=== PATIENT | female | born 1975 | race Caucasian/White ===

== ENCOUNTER 2024-04-23 14:20 | Outpatient (AMB) | payer BC, SELFPAY ==
--- NOTE | 2024-04-23 14:23 | MHC.OFFVIS ---
Vital Signs 04/23/24 14:24 Height 5 ft 5 in Weight 170 lb BMI 28.3 BP 126/70 Intake Visit Reasons: New patient Annual [employer] Rolls Required: No Information Interpreted: clinical only Maintenance Equipment Operator: Maintenance Equipment Operator Present Allergies codeine Allergy (Severe, Verified 04/23/24 14:27) Fatigued Sulfa (Sulfonamide Antibiotics) Allergy (Severe, Verified 04/23/24 14:27) Hives Medication List - Last Reconciled 04/23/24 by Coco Lepe CNM fexofenadine (Coreen Allergy) 120 mg PO DAILY norethindrone (contraceptive) 0.35 mg PO DAILY olmesartan (Benicar) 20 mg PO DAILY ziprasidone HCl (Geodon) 60 mg PO BID Post menopausal: Yes (2009) Do you need a note to return to daycare/school/sports/work: No HPI HPI New patient Annual: Details: Patient is here for new 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 She is on control pills and has been for years in the only time she went off them somebody remove the condom and she got and had to have an so she has not going off control until she is very clear that she does not need it she has not interested in going off of it and getting checked to see if she is menopausal yet. She has not having any symptoms other than some night sweats which she manages. She is gradually getting seen by primary care and has had all her fasting blood work and was told everything was good she is working on weight loss and walking a lot. She has waiting on a dermatology referral she has set up appointments with therapist and psychiatrist and is getting that seem to. She was told she had a fibroid in the past she has been on the norethindrone control pills for years and they have worked well for her and gradually her periods tapered off and got mortgage clerk and mortgage clerk and finally disappeared and she has not on happy with this. She has never had an abnormal Pap smear she said she had 2 signed have her records sent here but search of the records does not reveal Pap smear anywhere it is supposed to be filed in the system we will do the Pap smear today she declines testing for STIs as she has no concerns about that. She does want her mammogram and she says she is overdue. She was told she had a fibroid in the past and is open to getting an ultrasound to check on that and also to check on the lining of the uterus. She was told that getting checked to see if she was menopausal was not reliable while she is on control and she has 0/No interest in going off of it to find out [facility] Medical History (Updated 04/23/24 @ 15:37 by Coco Lepe CNM) HTN (hypertension) Skin cancer Bipolar 1 disorder, depressed Family History (Updated 04/23/24 @ 14:33 by Josh Vazquez [facility]) Paternal Aunt Ovarian cancer Social History (Updated 04/23/24 @ 14:33 by Josh Vazquez [facility]) Alcohol intake: current Alcohol intake frequency: 0-2 drinks per day Patient Tobacco Use Status: Former Tobacco user Substance Use Type: Marijuana Female Reproductive History Menstrual Age of Menarche: 11 Duration of menses: 3-5 days control method: pills Total pregnancies: 0 Date of last pap smear: 12/05/22 (negative) History of abnormal pap smear: No Date of Mammogram: 12/05/22 (negative) Physical Exam Vital Signs: Last Vital Signs BP 126/70 04/23/24 14:24 BMI result Body Mass Index 28.3 Assessment & Plan Assessment & Plan (1) Well woman exam with routine gynecological exam: Code(s): Z01.419 - Encounter for gynecological examination (general) (routine) without abnormal findings Category: Medical (2) Surveillance for control, oral contraceptives: Code(s): Z30.41 - Encounter for surveillance of contraceptive pills Category: Medical (3) Fibroid uterus: Code(s): D25.9 - Leiomyoma of uterus, unspecified Category: Medical (4) Amenorrhea, secondary: Comment: Has been on norethindrone control pills for years periods gradually tapered off and gradually disappeared, gets some cramping monthly. Code(s): N91.1 - Secondary amenorrhea Category: Medical Plan -----Discussed in this visit the following: healthy balanced diet, regular and consistent exercise, getting recommended health screens, doing the best she can for her particular health concerns, kegel exercises, pap smear screening and followup recommendations, mammography screening and SBE, normal changes in cycles in her life stage--- . Discussed her past history use of the norethindrone control pills to manage her periods but eventually made her periods disappear she has been happy on these and does not want to go off them and chance end of life she has in a stable relationship currently. She declines testing for STIs she wants to stay on the control pills she has not interested in going off of them and checking FSH level at this time. She is looking to get a mammogram and is open to having a pelvic ultrasound just to check the endometrial lining and she did have a history of a fibroid in the past. She is working on losing another 20 or 25 lb. She walks many miles a day. She is still trying to set up all of her medical appointments and is waiting for skin appointment she does have a history of skin cancer but the waiting time for an appointment is very long. I will refill her control pills as soon as her mail order prescription is entered into her system. Pap smear was done today as review of our records did not indicate receipt of any records from her [facility] provider she denies any history of abnormal Paps she declined any testing for STIs and has no problems with abnormal discharge. RTC after the ultrasound to review new ultrasound discussed that often times on control pills a various types oligomenorrhea can occur and eventually amenorrhea. Discussed that this affect is some early seen the Mirena but less often with progestin only control pills. NOTE I ATTEMPTED TO SEND HER NORETHINDRONE PRESCRIPTION FOR 1 YEAR TO [facility] HOWEVER HER SPECIFIC [facility] DISPENSER INFORMATION NEEDED TO BE INPUT INTO THE SYSTEM AND IT WAS NOT ABLE TO BE ENTERED BY OFFICE STAFF UNTIL MORE INFORMATION IS OBTAINED PATIENT STATES SHE WILL CONTACT INTERNATIONAL MARKETING MANAGER AND WHEN PRESCRIPTION REQUEST SENT TO ME, I WILL SEND IT. Orders: Orders MM tomosynthesis screening BI Today D25.9 - Leiomyoma of uterus, unspecified, N91.1 - Secondary amenorrhea, Z01.419 - Encounter for gynecological examination (general) (routine) without abnormal findings, Z12.31 - Encounter for screening mammogram for malignant neoplasm of breast, Z30.41 - Encounter for surveillance of contraceptive pills US pelvic and transvaginal Today D25.9 - Leiomyoma of uterus, unspecified, N91.1 - Secondary amenorrhea, Z01.419 - Encounter for gynecological examination (general) (routine) without abnormal findings, Z30.41 - Encounter for surveillance of contraceptive pills Pap Smear Today Z01.419 - Encounter for gynecological examination (general) (routine) without abnormal findings Coding Level of Care Code New Pt Prev Care 40-64y(80658) Diagnoses Well woman exam with routine gynecological exam Z01.419 Surveillance for control, oral contraceptives Z30.41 Fibroid uterus D25.9 Amenorrhea, secondary N91.1
[2024-04-23 14:24] VITALS: BP 126/70; BMI 28.3
== END 2024-04-23 15:53 | disposition home or self-care (01) ==
LOC: HO.HWSM 14:20
PROVIDERS: PCP Family Medicine; Visit Provider Advanced Practice Midwife
DX: Z01.419 Encounter for gynecological examination (general) (routine) without abnormal findings (principal); Z30.41 Encounter for surveillance of contraceptive pills; D25.9 Leiomyoma of uterus, unspecified; N91.1 Secondary amenorrhea
CPT/HCPCS: 99386

== ENCOUNTER 2024-04-23 14:20 | Outpatient (REF) | payer BC, SELFPAY ==
[2024-04-29 20:23] LABS: HPV mRNA E6/E7 rflx Not Detected (Not Detected)
== END 2024-04-23 14:21 | disposition home or self-care (01) ==
LOC: HO.LAB 14:20
PROVIDERS: PCP Family Medicine; Visit Provider Advanced Practice Midwife
DX: Z01.419 Encounter for gynecological examination (general) (routine) without abnormal findings (principal); Z11.51 Encounter for screening for human papillomavirus (HPV)
CPT/HCPCS: 87624; 88142

== ENCOUNTER 2024-05-15 14:25 | Outpatient (REF) | payer BC, SELFPAY ==
--- NOTE | ~2024-05-15 | US_ITS ---
EXAMINATION: US PELVIS CLINICAL INFORMATION: History of fibroids. COMPARISON: None available. TECHNIQUE: Ultrasound of the pelvis is performed using both transabdominal and transvaginal transducers along with Doppler. Transvaginal imaging is performed due to inadequate visualization transabdominally. FINDINGS: Uterus: The uterus is anteverted and retroflexed measuring 10.2 x 7.6 x 5.8 cm for a volume of 235 mL. The double wall endometrial thickness is 4 mm. There is a large 5.5 x 4.2 x 5.0 cm fibroid at the fundus on the right with a smaller right-sided mid body submucosal 1.3 x 1.1 x 1.2 cm fibroid. Adnexa: The right ovary was not seen. The left ovary appeared normal measuring 2.0 x 1.5 x 1.4 cm for a volume of 2.2 mL. No free fluid present in the cul-de-sac. US/US pelvic and transvaginal IMPRESSION: Uterine fibroids as described above.
== END 2024-05-15 14:26 | disposition home or self-care (01) ==
LOC: HO.US 14:25
PROVIDERS: PCP Family Medicine; Visit Provider Advanced Practice Midwife
DX: D25.9 Leiomyoma of uterus, unspecified (principal); N91.1 Secondary amenorrhea
CPT/HCPCS: 76830; 76856

== ENCOUNTER → 2024-05-22 09:15 | Outpatient (BNV) | payer BC, SELFPAY | PROVIDERS: PCP Family Medicine; Visit Provider Radiology Diagnostic Radiology | DX: Z12.31 Encounter for screening mammogram for malignant neoplasm of breast (principal) | CPT/HCPCS: 77063; 77067 ==

== ENCOUNTER 2024-05-22 09:21 | Outpatient (REF) | payer BC, SELFPAY ==
--- NOTE | ~2024-05-22 | MM_ITS ---
EXAMINATION: MM SCREENING DIGITAL BREAST TOMOSYNTHESIS, BILATERAL CLINICAL INFORMATION: Screening. Asymptomatic. COMPARISON: Mammography: There are no prior mammograms for comparison. TECHNIQUE: Digital breast tomosynthesis is performed in both the craniocaudal and mediolateral oblique views along with computer-aided detection (CAD). Synthesized 2D images are generated from the tomosynthesis. FINDINGS: The breasts are heterogeneously dense, which may obscure small masses (ACR BI-RADS breast composition Category c). There are no significant masses, abnormal calcifications, or other abnormalities. MM/MM tomosynthesis screening BI IMPRESSION: No mammographic evidence of malignancy. ASSESSMENT: BI-RADS BI-RADS 1 - Negative RECOMMENDATION: Routine annual mammography screening. 1 year F/U This examination should not preclude the clinical evaluation of a suspicious palpable abnormality. This patient's information was entered into a reminder system with a target due date for their next mammogram.
== END 2024-05-22 09:22 | disposition home or self-care (01) ==
LOC: HO.MAMMO 09:21
PROVIDERS: PCP Family Medicine; Visit Provider Advanced Practice Midwife
DX: Z12.31 Encounter for screening mammogram for malignant neoplasm of breast (principal)
CPT/HCPCS: 77063; 77067

== ENCOUNTER 2024-06-14 13:35 | Outpatient (AMB) | payer BC, SELFPAY ==
[2024-06-14 13:45] VITALS: BP 116/70; BMI 28.3
--- NOTE | 2024-06-14 13:45 | A.OFFVIS_ITS ---
Vital Signs 06/14/24 13:45 Height 5 ft 5 in Weight 170 lb BMI 28.3 BP 116/70 Intake Visit Reasons: ultra sound follow up Medical Records Assistant Services: Medical Records Assistant Present Information Interpreted: clinical only Data Storage Specialist: Data Storage Specialist Present Allergies codeine Allergy (Severe, Verified 06/14/24 13:46) Fatigued Sulfa (Sulfonamide Antibiotics) Allergy (Severe, Verified 06/14/24 13:46) Hives Post menopausal: Yes (2009) Do you need a note to return to daycare/school/sports/work: No HPI HPI ultra sound follow up: Details: Patient is here for an ultrasound follow-up visit. She knew she had fibroids and per my note this was to check whether not they had grown additionally it was to assess whether there was anything problematic going on with her uterine lining as she has not really had a period in many years as they have dwindled over time discussion had also taken place as to whether not to check for menopause but she would perhaps me just a for checking the FSH level and she has no role at the as she is very sexually active and has no injury no problems ever also has no issues many years. In this visit we reviewed the history and her ultrasound in detail. She is on meds for her bipolar and is feeling that they are very stable at this time and she is doing well and she is also on medication for her blood pressure and that is good as well she has her primary care provider and her psychiatrist and she checks in with them and she is very proactive and does her own research and is her best advocate. She was able to get her refill through [facility] and it is easy to pharmacy picking technician pills every 3 months so she is sticking with that for now. She is not having any debilitating symptoms and discussion took place about being very physically sexually active and how this helps keep going. We will see her in 1 year. She had her Pap smear and she had her mammogram as she was told she had dense breasts. [facility] Medical History HTN (hypertension) Skin cancer Bipolar 1 disorder, depressed Family History Paternal Aunt Ovarian cancer Social History Alcohol intake: current Alcohol intake frequency: 0-2 drinks per day Patient Tobacco Use Status: Former Tobacco user Substance Use Type: Marijuana Female Reproductive History Menstrual Age of Menarche: 11 Duration of menses: 3-5 days control method: pills Total pregnancies: 0 Date of last pap smear: 04/24/24 (neg.) History of abnormal pap smear: No Date of Mammogram: 11/22/23 (neg.) Physical Exam Vital Signs: Last Vital Signs BP 116/70 06/14/24 13:45 BMI result Body Mass Index 28.3 Results Reviewed Results Reviewed: Patient: Lynne Amador MR#: [id number] : 1975 Acct:[id number] Age/Sex: 48 / F ADM Date: 05/15/24 Loc: HO.US Attending Dr: Coco Lepe CNM Ordering Physician: Coco Lepe CNM Date of Service: 05/15/24 Procedure(s): US pelvic and transvaginal Accession Number(s): [id number] cc: Dari Carmen MD; Coco Lepe CNM~ EXAMINATION: US PELVIS CLINICAL INFORMATION: History of fibroids. COMPARISON: None available. TECHNIQUE: Ultrasound of the pelvis is performed using both transabdominal and transvaginal transducers along with Doppler. Transvaginal imaging is performed due to inadequate visualization transabdominally. FINDINGS: Uterus: The uterus is anteverted and retroflexed measuring 10.2 x 7.6 x 5.8 cm for a volume of 235 mL. The double wall endometrial thickness is 4 mm. There is a large 5.5 x 4.2 x 5.0 cm fibroid at the fundus on the right with a smaller right-sided mid body submucosal 1.3 x 1.1 x 1.2 cm fibroid. Adnexa: The right ovary was not seen. The left ovary appeared normal measuring 2.0 x 1.5 x 1.4 cm for a volume of 2.2 mL. No free fluid present in the cul-de-sac. US/US pelvic and transvaginal IMPRESSION: Uterine fibroids as described above. Dictated By: Umair Sepulveda MD Signed By: <Electronically signed by Umair Sepulveda MD in OV> 06/03/24 2240 DD/ 1454 TD/TT: Electrolog Operator: KEKE Assessment & Plan Assessment & Plan (1) Cervical cancer screening: Comment: HPV is negative that the Pap is still pending... Pap is neg. Code(s): Z12.4 - Encounter for screening for malignant neoplasm of cervix Category: Medical (2) Amenorrhea, secondary: Comment: Has been on norethindrone control pills for years periods gradually tapered off and gradually disappeared, gets some cramping monthly. Code(s): N91.1 - Secondary amenorrhea Category: Medical (3) Fibroid uterus: Code(s): D25.9 - Leiomyoma of uterus, unspecified Category: Medical (4) Surveillance for control, oral contraceptives: Code(s): Z30.41 - Encounter for surveillance of contraceptive pills Category: Medical Plan Patient is here for an ultrasound follow-up visit. She knew she had fibroids and per my note this was to check whether not they had grown additionally it was to assess whether there was anything problematic going on with her uterine lining as she has not really had a period in many years as they have dwindled over time discussion had also taken place as to whether not to check for menopause but she would perhaps me just a for checking the FSH level and she has no role at the as she is very sexually active and has no injury no problems ever also has no issues many years. In this visit we reviewed the history and her ultrasound in detail. She is on meds for her bipolar and is feeling that they are very stable at this time and she is doing well and she is also on medication for her blood pressure and that is good as well she has her primary care provider and her psychiatrist and she checks in with them and she is very proactive and does her own research and is her best advocate. She was able [facility] and it is easy to pharmacy picking technician pills every 3 months so she is sticking with that for now. She is not having any debilitating symptoms and discussion took place about being very physically sexually active and how this helps keep going. We will see her in 1 year. She had her Pap smear and she had her mammogram as she was told she had dense breasts. Coding Level of Care Code Est Pt Level 3 (80318) Diagnoses Cervical cancer screening Z12.4 Amenorrhea, secondary N91.1 Fibroid uterus D25.9 Surveillance for control, oral contraceptives Z30.41
== END 2024-06-14 14:34 | disposition home or self-care (01) ==
LOC: HO.HWSM 13:35
PROVIDERS: PCP Family Medicine; Visit Provider Advanced Practice Midwife
DX: N91.1 Secondary amenorrhea (principal); D25.9 Leiomyoma of uterus, unspecified; Z30.41 Encounter for surveillance of contraceptive pills
CPT/HCPCS: 99213

== ENCOUNTER → 2024-06-14 13:35 | Outpatient (BNVA) | payer BC, SELFPAY | PROVIDERS: PCP Family Medicine; Visit Provider Advanced Practice Midwife ==

== ENCOUNTER 2025-06-16 12:58 | Outpatient (REF) | payer BC, SELFPAY ==
--- OUTSIDE RECORDS SUMMARY | 2025-06-16 13:04 | XMS_ITS | Clinical Summary ---
Author Organization [facility] [address] [facility] Address [address] [place] [address] Phone Care Team Providers Care Talent Rep Name Role Phone Dari Carmen MD Primary Care Provider Allergies Active Allergy Reactions Criticality Noted Date Comments Cat Dander 03/11/2025 Codeine 03/11/2025 Econazole Rash 03/11/2025 Grass Pollen 03/11/2025 Oxycodone 03/11/2025 Oxycodone-Acetaminophen 03/11/2025 Sulfa (Sulfonamide Antibiotics) Hives 04/2025 Medications albuterol HFA (PROAIR HFA ; PROVENTIL HFA ; VENTOLIN HFA) 90 mcg/actuation inhaler Inhale 2 puffs by mouth every 6 (six) hours if needed for wheezing. Active fexofenadine (RAMAN) 180 mg tablet Take 1 tablet (180 mg total) by mouth 1 (one) time each day. Active clonazePAM (KlonoPIN) 0.5 mg tablet Take 1 tablet (0.5 mg total) by mouth 1 (one) time each day if needed for anxiety. Max Daily Amount: 0.5 mg Active prasterone, dhea, (DHEA) 25 mg capsule Take 25 mg by mouth 1 (one) time each day. Active B complex-vitamin C-folic acid (DRAKE-SHAR) 1-60-300 mg-mg-mcg tablet Take 1 tablet by mouth 1 (one) time each day with breakfast. Active metoprolol succinate 25 mg capsule,sprinkl e,ER 24hr Take 25 mg by mouth 1 (one) time each day. Active multivitamin tablet Take 1 tablet by mouth 1 (one) time each day. Active norethindrone (HOLLIE,ATUL,H EATHER,MICRONOR ) 0.35 mg tablet Take 1 tablet (0.35 mg total) by mouth 1 (one) time each day. Active olmesartan (BENICAR) 20 mg tablet Take 1 tablet (20 mg total) by mouth 1 (one) time each day. Active sodium chloride (OCEAN) 0.65 % nasal spray Administer 1 spray into each nostril if needed for congestion. Active ziprasidone (GEODON) 60 mg capsule Take 1 capsule (60 mg total) by mouth 2 (two) times a day with meals. Active polyethylene glycol (Golytely) 236-22.74-6.74 -5.86 gram solution Take 4L by mouth once for one dose. May substitue any PEG. Starting at 6PM the night before your procedure drink 1 8oz glasses at your own pace until you complete half of the gallon. Finish 2nd half of the gallon 5 hours before your procedure. 4000 mL 5 Active bisacodyL (DULCOLAX) 5 mg EC tablet Take 2 tablets by mouth right before beginning bowel prep. See instructions provided by the office 2 tablet 5 Active Encounters Date Type Department Care Team Description 05/21/2025 Telephone Gastroenterology - [address] [id number] Robles Puckett MD special procedure r/s from Last 3 Months Social History Tobacco Use Types Packs/Day Years Used Date Smoking Tobacco: Never Assessed Comments Unknown Sex and Gender Information Value Date Recorded Sex Assigned at Not on file Legal Sex Female 12:30 PM EDT Gender Identity Female 05/15/2025 8:52 AM EDT Sexual Orientation Not on file Plan of Treatment Upcoming Encounters Date Type Department Care Team (Late st Contact Info) Description 08/08/2025 8:30 AM EDT Appointment [facility]oscopy [address] [place] [id number] Robles Puckett MD [address] [address] Health Maintenance Due Date Last Done Comments Breast Cancer Screening 1975 DTaP,Tdap,and Td Vaccines (1 - Tdap) 1993 Hepatitis B Vaccines (1 of 3 - 19+ 3-dose series) 1993 Cervical Cancer Screening: P ap Smear 1995 Pneumococcal Vaccine: 50+ Ye ars (1 of 1 - PCV) 2024 Zoster Vaccines (1 of 2) 2024 COVID-19 Vaccine (1 - 2023-2 5 season) 2024 Depression Screening 11/06/2024 Colorectal Cancer Screening: Colonoscopy 03/12/2025 HIV Screening 03/12/2025 Hepatitis C Screening 03/12/2025 Social Influencers of Health Screening 03/12/2025 Influenza Vaccine (#1) 2025 HIB Vaccines Aged Out No longer eligi ble based on patient's age to complete this topic HPV Vaccines Aged Out No longer eligi ble based on patient's age to complete this topic Hepatitis A Vaccines Aged Out No long er eligible based on patient's age to complete this topic IPV Vaccines Aged Out No longer eligi ble based on patient's age to complete this topic MMR Vaccines Aged Out No longer eligi ble based on patient's age to complete this topic Meningococcal ACWY Vaccine Aged Out N o longer eligible based on patient's age to complete this topic Meningococcal B Vaccine Aged Out No l onger eligible based on patient's age to complete this topic RSV Immunization Patients Un fabiola 20 months Aged Out No longer eligible b ased on patient's age to complete this topic Varicella Vaccines Aged Out No longer eligible based on patient's age to complete this topic Insurance [facility]ASHI Helton [facility] ([facility] Care Teams Talent Rep Relationship Specialty Start Date End Date Dari Carmen MD [address] [id number] PCP - General Family Medicine 03/11/25
== END 2025-06-16 12:59 | disposition home or self-care (01) ==
LOC: HO.MAMMO 12:58
PROVIDERS: PCP Family Medicine; Visit Provider Family Medicine
DX: Z12.31 Encounter for screening mammogram for malignant neoplasm of breast (principal)
CPT/HCPCS: 77063; 77067

== ENCOUNTER → 2025-06-16 13:00 | Outpatient (BNV) | payer BC, SELFPAY | PROVIDERS: PCP Family Medicine; Visit Provider Internal Medicine | DX: Z12.31 Encounter for screening mammogram for malignant neoplasm of breast (principal) | CPT/HCPCS: 77063; 77067 ==

== ENCOUNTER 2025-08-12 08:58 | Outpatient (AMB) | payer BC, SELFPAY ==
--- OUTSIDE RECORDS SUMMARY | 2025-08-08 07:42 | XMS_ITS | Encounter Summary ---
Author Organization [facility] Address [address] [place] [address] Care Team Providers Care Tank Builder And Erector Name Role Phone Dari Carmen MD Primary Care Provider [phone] Reason for Referral * Hospital - Outpatient (Routine) - Authorized Specialty Diagnoses / Procedures Referred By Samantha tilley Referred To Contact Gastroenterology Diagnoses Colon cancer screening Procedures COLONOSCOPY Anesthesia - MAC; [facility] ENDOSCOPY Robles Puckett MD [address] [address] Phone: tel: fax: [facility] Endoscopy [address] [place] [address] Phone: tel: Referral ID Status Reason Start Date Expiration Date V isits Requested Visits Authorized [id number] Authorized 03/14/2025 03/14/2026 1 1 Reason for Visit * Hospital - Outpatient (Routine) - Authorized Specialty Diagnoses / Procedures Referred By Samantha tilley Referred To Contact Gastroenterology Diagnoses Colon cancer screening Procedures COLONOSCOPY Anesthesia - MAC; [facility] ENDOSCOPY Robles Puckett MD [address] [address] Phone: tel: fax: [facility] Endoscopy [address] [place] [address] Phone: tel: Referral ID Status Reason Start Date Expiration Date V isits Requested Visits Authorized [id number] Authorized 03/14/2025 03/14/2026 1 1 Encounter Details Date Type Department Care Team (Latest Contact Info) Description 08/08/2025 7:42 AM EDT - 08/08/2025 11:59 PM EDT Hospital Encounter [facility] Endoscopy [address] [place] [address] Robles Puckett MD [address] [address] Tiarra Rios CRNA [address] [place] [address] Steve Prakash DO [address] [place] [address] Colon cancer screening Discharge Disposition: Home or Self Care Social History Tobacco Use Types Packs/Day Years Used Date Smoking Tobacco: Never Smokeless Tobacco: Current Tobacco Cessation:Ready to Q uit: Not Asked; Counseling Given: Not Answered Interpersonal Safety Answer Date Record ed Physical Abuse Unrecognized value 08/08/2025 Verbal Abuse Unrecognized value 08/08/2025 Comments No Sex and Gender Information Value Date Recorded Sex Assigned at Not on file Legal Sex Female 12:30 PM EDT Gender Identity Female 05/15/2025 8:52 AM EDT Sexual Orientation Not on file documented as of this encounter Last Filed Vital Signs Vital Sign Reading Time Taken Comments Blood Pressure 145/76 08/08/2025 9:13 AM EDT Pulse 57 08/08/2025 9:13 AM EDT Temperature 36.7 C (98.1 F) 08/08/2025 8:53 AM EDT Respiratory Rate 17 08/08/2025 9:13 AM EDT Oxygen Saturation 98% 08/08/2025 9:13 AM EDT Inhaled Oxygen Concentration - - Weight 76.2 kg (168 lb) 08/08/2025 8:31 AM EDT Height 165.1 cm (5' 5 ) 08/08/2025 8:31 AM EDT Body Mass Index 27.96 08/08/2025 8:31 AM EDT documented in this encounter Discharge Instructions * Attachments The following attachments cannot be sent through Care Everywhere. * Colonoscopy: Post op (Citizen Of [place]) documented in this encounter Medications at Time of Discharge albuterol HFA (PROAIR HFA ; PROVENTIL HFA ; VENTOLIN HFA) 90 mcg/actuation inhaler Inhale 2 puffs by mouth every 6 (six) hours if needed for wheezing. B complex-vitamin C-folic acid (DRAKE-SHAR) 1-60-300 mg-mg-mcg tablet Take 1 tablet by mouth 1 (one) time each day with breakfast. bisacodyL (DULCOLAX) 5 mg EC tablet Take 2 tablets by mouth right before beginning bowel prep. See instructions provided by the office 2 tablet 05/06/2025 clonazePAM (KlonoPIN) 0.5 mg tablet Take 1 tablet (0.5 mg total) by mouth 1 (one) time each day if needed for anxiety. fexofenadine (RAMAN) 180 mg tablet Take 1 tablet (180 mg total) by mouth 1 (one) time each day. metoprolol succinate 25 mg capsule,sprinkle ,ER 24hr Take 25 mg by mouth 1 (one) time each day. multivitamin tablet Take 1 tablet by mouth 1 (one) time each day. norethindrone (HOLLIE,ATUL,HE ATHER,MICRONOR) 0.35 mg tablet Take 1 tablet (0.35 mg total) by mouth 1 (one) time each day. olmesartan (BENICAR) 20 mg tablet Take 1 tablet (20 mg total) by mouth 1 (one) time each day. polyethylene glycol (Golytely) 236-22.74-6.74 -5.86 gram solution Take 4L by mouth once for one dose. May substitue any PEG. Starting at 6PM the night before your procedure drink 1 8oz glasses at your own pace until you complete half of the gallon. Finish 2nd half of the gallon 5 hours before your procedure. 4000 mL 05/06/2025 prasterone, dhea, (DHEA) 25 mg capsule Take 25 mg by mouth 1 (one) time each day. sodium chloride (OCEAN) 0.65 % nasal spray Administer 1 spray into each nostril if needed for congestion. ziprasidone (GEODON) 60 mg capsule Take 1 capsule (60 mg total) by mouth 2 (two) times a day with meals. documented as of this encounter Discharge Disposition Disposition Code Departure Means Destination Home or Self Care documented in this encounter H&P Notes * Robles Puckett MD - 08/08/2025 8:30 AM EDT Pre-Op Diagnosis: Screening for colon cancer Proposed Procedure: Colonoscopy Performing Surgeon/MD/Endoscopist: Robles Puckett MD Medical/History: Medical History[1]Surgical History[2] Medications/Allergies: Prior to Admission medications Medication Sig Start Date End Date Taking? Authorizing Provider fexofenadine (RAMAN) 180 mg tablet Take 1 tablet (180 mg total) by mouth 1 (one) time each day. Yes Historical Provider, metoprolol succinate 25 mg capsule,sprinkle,ER 24hr Take 25 mg by mouth 1 (one) time each day. Yes Historical Provider, multivitamin tablet Take 1 tablet by mouth 1 (one) time each day. Yes Historical Provider, norethindrone (HOLLIE,ATUL,JED,MICRONOR) 0.35 mg tablet Take 1 tablet (0.35 mg total) by mouth1 (one) time each day. Yes Historical Provider, olmesartan (BENICAR) 20 mg tablet Take 1 tablet (20 mg total) by mouth 1 (one) time each day. Yes Historical Provider, prasterone, dhea, (DHEA) 25 mg capsule Take 25 mg by mouth 1 (one) time each day. Yes Historical Provider, ziprasidone (GEODON) 60 mg capsule Take 1 capsule (60 mg total) by mouth 2 (two) times a day with meals. Yes Historical Provider, albuterol HFA (PROAIR HFA ; PROVENTIL HFA ; VENTOLIN HFA) 90 mcg/actuation inhaler Inhale 2 puffs by mouth every 6 (six) hours if needed for wheezing. Historical Provider, B complex-vitamin C-folic acid (DRAKE-SHAR) 1-60-300 mg-mg-mcg tablet Take 1 tablet by mouth 1 (one)time each day with breakfast. Historical Provider, bisacodyL (DULCOLAX) 5 mg EC tablet Take 2 tablets by mouth right before beginning bowel prep. See instructions provided by the office 05/06/25 Robles Puckett MD clonazePAM (KlonoPIN) 0.5 mg tablet Take 1 tablet (0.5 mg total) by mouth 1 (one) time each day if needed for anxiety. Historical Provider, polyethylene glycol (Golytely) 236-22.74-6.74 -5.86 gram solution Take 4L by mouth once for one dose. May substitue any PEG. Starting at 6PM the night before your procedure drink 1 8oz glasses at your own pace until you complete half of the gallon. Finish 2nd half of the gallon 5 hours before your procedure. 05/06/25 Robles Puckett MD sodium chloride (OCEAN) 0.65 % nasal spray Administer 1 spray into each nostril if needed for congestion. Historical Provider, Patient Age:50 y.o. Vitals: Vitals: 08/08/25 0831 BP: (!) 142/79 Pulse: 67 Resp: 15 Temp: 36.7 ??C (98.1 ??F) SpO2: 98% Physical Exam: Mental Status: Clear HEENT: WNL Heart: WNL Lungs: WNL Abdomen: WNL Extremities: WNL Neuro: WNL Diagnosis/Plan: Screening for colon cancer Plan for colonoscopy Board Certified Gastroenterology [facility] [phone] [place] [id number] [email or web address] Robles Puckett MD 8:41 AM EDT [1] Past Medical History: Diagnosis Date Anxiety Bipolar 1 disorder (CMS/HCC V24, CMS/HCC V28) Depression Hypertension Skin cancer [2] Past Surgical History: Procedure Laterality Date COLONOSCOPY documented in this encounter Procedure Notes * Juice Valerio RN - 08/08/2025 8:30 AM EDT PATIENT TOLERATED A DRINK AND A SNACK. MD DISCUSSED RESULT WITH PATIENT. FALL RISK REVIEWED. ALL PERSONAL EFFECTS RETURNED TO PATIENT. documented in this encounter Plan of Treatment Not on file documented as of this encounter Procedures Procedure Name Priority Date/Time Associated Diagnosis Comments COLONOSCOPY Routine 08/08/2025 8:52 AM EDT Colon cancer screening documented in this encounter Results * COLONOSCOPY Anesthesia - MAC; [facility] END[facility]COPY (08/08/2025 8:52 AM EDT) Anatomical Region Laterality Modality Other 08/08/2025 8:32 AM EDT Impressions 08/08/2025 8:54 AM EDT - The entire examined colon is normal on direct and retroflexion views. - No specimens collected. Recommendation: - Discharge patient to home. - Resume previous diet. - Continue present medications. - Repeat colonoscopy in 10 years for surveillance. - Return to GI office PRN. Narrative 08/08/2025 8:54 AM EDT [facility] GI Patient Name: Lynne Amador Procedure Date: 08/08/2025 8:32 AM Date of : 1975 Age: 50 Room: ROOM 14 Gender: Female Note Status: Finalized Attending MD: Robles Puckett MD, Procedure Date No Time: 08/08/2025 Procedure: Colonoscopy Indications: Screening for colorectal malignant neoplasm Providers: Robles Puckett MD Referring MD: Robles Puckett MD Medicines: Monitored Anesthesia Care Complications: No immediate complications. Estimated Blood Loss: Estimated blood loss: none. Procedure: Pre-Anesthesia Assessment: - ASA Grade Assessment: II - A patient with mild systemic disease. - After reviewing the risks and benefits, the patient was deemed in satisfactory condition to undergo the procedure. After I obtained informed consent, the scope was passed under direct vision. Throughout the procedure, the patient's blood pressure, pulse, and oxygen saturations were monitored continuously.The Olympus Pediatric Colonoscope was introduced through the anus and advanced to the cecum, identified by appendiceal orifice and ileocecal valve. The colonoscopy was performed without difficulty. The patient tolerated the procedure well. The quality of the bowel preparation was good. Findings: The entire examined colon appeared normal on direct and retroflexion views. Procedure Code(s): --- Professional --- G0121, Colorectal cancer screening; colonoscopy on individual not meeting criteria for high risk Diagnosis Code(s): --- Professional --- Z12.11, Encounter for screening for malignant neoplasm of colon CPT copyright 2020 [employer]. All rights reserved. The codes documented in this report are preliminary and upon spa manager review may be revised to meet current compliance requirements. Robles Puckett MD 08/08/2025 8:54:14 AM This report has been signed electronically.Robles Puckett MD Number of Addenda: 0 Note Initiated On: 08/08/2025 8:32 AM Scope In: Scope Out: Endoscopy Department at [facility] - [address] [place] [id number] Procedure Note Robles Puckett MD - 08/08/2025 [facility] GI Patient Name: Lynne Amador Procedure Date: 08/08/2025 8:32 AM Date of : 1975 Age: 50 Room: ROOM 14 Gender: Female Note Status: Finalized Attending MD: Robles Puckett MD, Procedure Date No Time: 08/08/2025 Procedure: Colonoscopy Indications: Screening for colorectal malignant neoplasm Providers: Robles Puckett MD Referring MD: Robles Puckett MD Medicines: Monitored Anesthesia Care Complications: No immediate complications. Estimated Blood Loss: Estimated blood loss: none. Procedure: Pre-Anesthesia Assessment: - ASA Grade Assessment: II - A patient with mild systemic disease. - After reviewing the risks and benefits, thepatient was deemed in satisfactory condition to undergo the procedure. After I obtained informed consent, the scope was passed under direct vision. Throughout theprocedure, the patient's blood pressure, pulse, and oxygen saturations were monitored continuously.The Olympus Pediatric Colonoscope was introduced through theanus and advanced to the cecum, identified byappendiceal orifice and ileocecal valve. The colonoscopy was performed without difficulty. The patient tolerated the procedure well. The quality of the bowel preparation was good. Findings: The entire examined colon appeared normal on direct and retroflexion views. Procedure Code(s): --- Professional --- G0121, Colorectal cancer screening; colonoscopy on individual not meeting criteria for high risk Diagnosis Code(s): --- Professional --- Z12.11, Encounter for screening for malignantneoplasm of colon CPT copyright 2020 [employer]. All rights reserved. The codes documented in this report are preliminary and upon spa manager reviewmay be revised to meet current compliance requirements. Robles Puckett MD 08/08/2025 8:54:14 AM This report has been signed electronically.Robles Puckett MD Number of Addenda: 0 Note Initiated On: 08/08/2025 8:32 AM Scope In: Scope Out: Endoscopy Department at [facility] - [address] [place] [phone] IMPRESSION: - The entire examined colon is normal on direct and retroflexion views. - No specimens collected. Recommendation: - Discharge patient to home. - Resume previous diet. - Continue present medications. - Repeat colonoscopy in 10 years forsurveillance. - Return to GI office PRN. Robles Puckett MD GI~PROCEDURE ORDERABLES Final Result documented in this encounter Visit Diagnoses Diagnosis Colon cancer screening Special screening for malignant neoplasms, colon documented in this encounter Orders Discharge Count Last Ordered Date First Orde red Date DISCHARGE PATIENT 1 08/08/2025 documented in this encounter Care Teams Tank Builder And Erector Relationship Specialty Start Date End Date Dari Carmen MD [address] [place] [phone] PCP - General Family Medicine 03/11/25 documented as of this encounter
--- OUTSIDE RECORDS SUMMARY | 2025-08-08 08:39 | XMS_ITS | Encounter Summary ---
Author Organization [facility] Address [address] [place] [address] Care Team Providers Care Clerk Cashier Name Role Phone Dari Carmen MD Primary Care Provider [phone] Encounter Details Date Type Department Care Team (Late st Contact Info) Description 08/08/2025 8:39 AM EDT Anesthesia Event [facility] Endoscopy [address] [place] [id number] Steve Prakash DO [address] [place] [address] Tiarra Rios, KNADI [address] [place] [address] Anesthesia Record Procedure Summary Procedure Name Responsible Anesthesiologist Anesthesia Start Time Anesthesia Stop Time COLONOSCOPY Steve LopezcheleDO carlos a 08/08/25 0839 0905 Events Date Time Event Comment 08/08/2025 0824 0839 An Start 0839 An Start Data The patient wa s reevaluated immediately before moderate or deep sedation use and before anesthesia induction. 0840 In Room 0840 Anesthesia Ready 0852 Out of Room 0854 an stop data 0905 Handoff to RN I completed my handoff to the receiving nurse during which we: 1. Identified the patient 2. Identified the responsible provider 3. Reviewed the pertinent medical history 4. Discussed the surgical course 5. Reviewed intra-op anesthesia management and issues during anesthesia 6. Set expectations for post-procedure period 7. Allowed opportunity for questions and acknowledgement of understanding. 0905 An Stop Meds Name Total propofol (DIPRIVAN) injection 10 mg/mL 2 50 mg lidocaine PF (XYLOCAINE-MPF) local injec tion 2% 100 mg lactated Ringer's infusion 0 mL * Agents No agents on file. * Blood No blood administrations on file. Lines, Drains, and Airways Type Details Placement Removal Peripheral IV Placement Date: 01/28; Placement Time: 831; Catheter Size: 20 G; Orientation: Right, Posterior; Location: Hand; Site Prep: Alcohol, Chlorhexidine; Inserted by: Vicky; Insertion Attempts: 1; Patient Tolerance: Tolerated well; Removal Date: 08/08/25; Removal Time: 0908/08/25 0832 by Usha Flood RN 08/08/25 09 by Juice Valerio RN documented in this encounter Social History Tobacco Use Types Packs/Day Years Used Date Smoking Tobacco: Never Smokeless Tobacco: Current Interpersonal Safety Answer Date Record ed Physical Abuse Unrecognized value 08/08/2025 Verbal Abuse Unrecognized value 08/08/2025 Comments No Sex and Gender Information Value Date Recorded Sex Assigned at Not on file Legal Sex Female 12:30 PM EDT Gender Identity Female 05/15/2025 8:52 AM EDT Sexual Orientation Not on file documented as of this encounter Progress Notes * Tiarra Rios CRNA - 08/08/2025 9:24 AM EDT Patient: Sophia Amador Procedure Summary Date: 08/08/25 Room / Location: [facility] Endoscopy Anesthesia Start: 838 Anesthesia Stop: Procedure: COLONOSCOPY Diagnosis: Colon cancer screening (Screening for colorectal malignant neoplasm) Scheduled Providers: Robles Puckett MD; Tiarra Rios CRNA; Steve Prakash DO Responsible Provider: Steve Prakash DO Anesthesia Type: MAC ASA Status: 2 Anesthesia Plan: MAC Last Vitals: Vitals Value Taken Time BP 145/76 08/08/25 09:13 Temp 36.7 ??C (98.1 ??F) 08/08/25 08:53 Pulse 57 08/08/25 09:13 Resp 17 08/08/25 09:13 SpO2 98 % 08/08/25 09:13 No data recorded Anesthesia Post Evaluation Patient location during evaluation: floor Patient participation: complete - patient participated Level of consciousness: awake Pain score: 0 Pain management: adequate Airway patency: patent Anesthetic complications: no Cardiovascular status: acceptable Respiratory status: acceptable Hydration status: acceptable Nausea: No Vomiting: No No notable events documented. * Steve Prakash DO - 08/08/2025 8:24 AM EDT 50 y.o. female scheduled for Colon cancer screening [COLONOSCOPY] Ht Readings from Last 1 Encounters: No data found for Ht Wt Readings from Last 1 Encounters: No data found for Wt There is no height or weight on file to calculate BMI. Medical History[1] Surgical History[2] Denies anesthesia complications Allergies[3] Medications Ordered Prior to Encounter[4] Current In-hospital Medications Prior to Admission medications Medication Sig Start [...] nostril if needed for congestion. Historical Provider, Social History[5] Is the patient a current smoker (e.g. cigarette, cigar, pip, e-cigarette, or mariajuana)? Yes [] No[] Patient previously instructed to abstain from smoking on the day of procedure? Yes [] No[] Patient smoked on the day of procedure? Yes [] No[] ASPIRE smoking VBR: [] Not interested in quitting [] Interested in quitting- referred to treatment [] Interested in quitting - treatment provided There were no vitals taken for this visit. LABS: No results found for: WBC , HGB , HCT , MCV , PLT No results found for: GLUCOSE , CALCIUM , NA , K , CO2 , CL , BUN , CREATININE No results found for: INR , PROTIME No results found for: PTT EKG No results found for this or any previous visit (from the past 4464 hours). ECHO No results found for this or any previous visit. CATH No results found for this or any previous visit. Relevant Problems No relevant active problems Clinical information reviewed: Allergies Meds Anesthesia Plan ASA 2 Anesthesia Plan: MAC Anesthesia Risks Discussed serious complications Induction method: intravenous Anesthetic plan and risks discussed with patient. Anesthesia Evaluation Patient summary reviewed Airway Mallampati: II Dental - normal exam Pulmonary - normal exam Cardiovascular - normal exam Neuro/Psych GI/Hepatic/Renal Endo/Other Abdominal PONV RISK SCORE: 1 There were no vitals filed for this visit. SpO2 Readings from Last 1 Encounters: No data found for SpO2 No results found for: WBC , RBC , HGB , HCT , PLT , MCV Allergies[6] STOP BANG: No data recorded NPO Status: No data recorded [1] No past medical history on file. [2] No past surgical history on file. [3] Allergies Allergen Reactions Cat Dander Codeine Econazole Rash Grass Pollen Oxycontin [Oxycodone] Percocet [Oxycodone-Acetaminophen] Sulfa (Sulfonamide Antibiotics) Hives [4] Current Outpatient Medications on File Prior to Encounter Medication Sig Dispense Refill fexofenadine (RAMAN) 180 mg tablet Take 1 tablet (180 mg total) by mouth 1 (one) time each day. metoprolol succinate 25 mg capsule,sprinkle,ER 24hr Take 25 mg by mouth 1 (one) time each day. multivitamin tablet Take 1 tablet by mouth 1 (one) time each day. norethindrone (HOLLIE,ATUL,JED,MICRONOR) 0.35 mg tablet Take 1 tablet (0.35 mg total) by mouth1 (one) time each day. olmesartan (BENICAR) 20 mg tablet Take 1 tablet (20 mg total) by mouth 1 (one) time each day. prasterone, dhea, (DHEA) 25 mg capsule Take 25 mg by mouth 1 (one) time each day. ziprasidone (GEODON) 60 mg capsule Take 1 capsule (60 mg total) by mouth 2 (two) times a day with meals. albuterol HFA (PROAIR HFA ; PROVENTIL HFA ; VENTOLIN HFA) 90 mcg/actuation inhaler Inhale 2 puffs by mouth every 6 (six) hours if needed for wheezing. B complex-vitamin C-folic acid (DRAKE-SHAR) 1-60-300 mg-mg-mcg tablet Take 1 tablet by mouth 1 (one)time each day with breakfast. bisacodyL (DULCOLAX) 5 mg EC tablet Take 2 tablets by mouth right before beginning bowel prep. See instructions provided by the office 2 tablet 0 clonazePAM (KlonoPIN) 0.5 mg tablet Take 1 tablet (0.5 mg total) by mouth 1 (one) time each day if needed for anxiety. polyethylene glycol (Golytely) 236-22.74-6.74 -5.86 gram solution Take 4L by mouth once for one dose. May substitue any PEG. Starting at 6PM the night before your procedure drink 1 8oz glasses at your own pace until you complete half of the gallon. Finish 2nd half of the gallon 5 hours before your procedure. 4000 mL 0 sodium chloride (OCEAN) 0.65 % nasal spray Administer 1 spray into each nostril if needed for congestion. No current facility-administered medications on file prior to encounter. [5] [6] Allergies Allergen Reactions Cat Dander Codeine Econazole Rash Grass Pollen Oxycontin [Oxycodone] Percocet [Oxycodone-Acetaminophen] Sulfa (Sulfonamide Antibiotics) Hives documented in this encounter Plan of Treatment Not on file documented as of this encounter Visit Diagnoses Not on filedocumented in this encounter Administered Medications Inactive Administered Medications - up to 3 most recent administrations Medication Order MAR Action Action Date Dose Rate Site lactated Ringer's infusion intravenous, Continuous PRN, Starting on Mon08/08/25 at 0840, Anesthesia Intraprocedure New Bag 08/08/2025 8:40 AM EDT lidocaine (PF) (XYLOCAINE-MPF) 2 % injection injection, As needed, Starting on Mon08/08/25 at 0840, Anesthesia Intraprocedure Given 08/08/2025 8:40 AM EDT 100 mg propofoL (DIPRIVAN) injection intravenous, As needed, Starting on Mon08/08/25 at 0840, Anesthesia Intraprocedure Given 08/08/2025 8:48 AM EDT 50 mg Given 08/08/2025 8:45 AM EDT 100 mg Given 08/08/2025 8:40 AM EDT 100 mg documented in this encounter Care Teams Clerk Cashier Relationship Specialty Start Date End Date Dari Carmen MD [address] [phone] PCP - General Family Medicine 03/11/25 documented as of this encounter
--- NOTE | 2025-08-12 08:59 | MHC.OFFVIS ---
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 (Naida) Accompanied by: Self / Same As Patient Allergies codeine Allergy (Severe, Verified 08/12/25 09:47) Fatigued Sulfa (Sulfonamide Antibiotics) Allergy (Severe, Verified 08/12/25 09:47) Hives Medication List - Last Reconciled 08/12/25 by Coco Lepe CNM fexofenadine (Coreen Allergy) 120 mg PO DAILY norethindrone (contraceptive) 0.35 mg PO DAILY olmesartan (Benicar) 20 mg PO DAILY ziprasidone HCl (Geodon) 60 mg PO BID Is last menstrual period known: No Post menopausal: No Patient : No HPI HPI 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 She was having a lot of disturbing symptoms with night sweats and inability to sleep and mood changes and hip pain that she attributed to menopause and she spoke to her primary care provider who was warning against the negative side effects of hormonal use so she went to an online service and has had visits with provider's online reviewing her whole history and they have prescribed for her a hormone replacement along with the control norethindrone that she is on and she has had relief from the very 1st dose and she continues with it and is very happy with this.. Reports that she did include this with her medical history to the provider who was online she does not know the name of the cream that she was given that she rubs on her skin but she says she will call the office and leave the message with nursing staff so it can be added to her chart. She is very sexually active with her partner they decided to both get blood tests for STIs as a baseline and were both surprised to find out that they had antibodies for HSV 1 and 2 but they have a life history that did not include any lesions as far as they remembered or knew. She had concerns about that as well she has never had an outbreak and says he has not either She has not had a period in very many years but she continues on the norethindrone because she does not think she has through menopause completely she has no problems and has not had any problems with vaginal dryness or irritation Also she was told that she had dense breasts and needed to have a an ultrasound ordered because of that finding on the mammogram [facility] Medical History HTN (hypertension) Skin cancer Bipolar 1 disorder, depressed Family History Paternal Aunt Ovarian cancer Social History Alcohol intake: current Alcohol intake frequency: 0-2 drinks per day Patient Tobacco Use Status: Former Tobacco user Substance Use Type: Marijuana Female Reproductive History Menstrual Age of Menarche: 11 control method: pills Total pregnancies: 0 Date of last pap smear: 04/23/24 (negative pap smear, negative hpv) History of abnormal pap smear: No Date of Mammogram: 06/16/25 (bi rad 1) Physical Exam Vital Signs: Last Vital Signs BP 126/74 08/12/25 09:08 BMI result Body Mass Index 27.6 Assessment & Plan Assessment & Plan (1) Well woman exam with routine gynecological exam: Code(s): Z01.419 - Encounter for gynecological examination (general) (routine) without abnormal findings Category: Medical (2) Surveillance for control, oral contraceptives: Code(s): Z30.41 - Encounter for surveillance of contraceptive pills Category: Medical (3) Amenorrhea, secondary: Comment: Has been on norethindrone control pills for years periods gradually tapered off and gradually disappeared, Code(s): N91.1 - Secondary amenorrhea Category: Medical (4) Dense breast tissue on mammogram: Comment: See note. Code(s): R92.30 - Dense breasts, unspecified Category: Medical Plan -----Discussed in this visit the following: healthy balanced diet, regular and consistent exercise, getting recommended health screens, doing the best she can for her particular health concerns, kegel exercises, pap smear screening and followup recommendations, mammography screening and SBE, normal changes in cycles in her life stage--- . Please see HPI for a summary of all the very many issues that were discussed in this visit including the patient is menopausal symptoms though believing that she is not through menopause yet her continuation on the control pills and desire to avoid a adriano menopausal her initiation of HRT as well from online provider's, and her report of dense breasts noted on mammogram for which she is seeking a breast ultrasound. Even though the mammogram was ordered by her primary care provider she says the that provider said she should speak to us about getting the ultrasound order I am ordering them breast ultrasound today on the strength of this. . Orders: Orders US breast LT complete Today N91.1 - Secondary amenorrhea, R92.30 - Dense breasts, unspecified, Z01.419 - Encounter for gynecological examination (general) (routine) without abnormal findings, Z30.41 - Encounter for surveillance of contraceptive pills US breast RT complete Today N91.1 - Secondary amenorrhea, R92.30 - Dense breasts, unspecified, Z01.419 - Encounter for gynecological examination (general) (routine) without abnormal findings, Z30.41 - Encounter for surveillance of contraceptive pills CT NG by PCR Vag/Cerv Today N89.8 - Other specified noninflammatory disorders of vagina Bacterial Vaginosis Panel Today N89.8 - Other specified noninflammatory disorders of vagina Medications: Refilled norethindrone (contraceptive) 0.35 mg PO DAILY 84 tabs 3RF Coding Level of Care Code Est Pt Prev Care 40-64y(88481) Diagnoses Well woman exam with routine gynecological exam Z01.419 Surveillance for control, oral contraceptives Z30.41 Amenorrhea, secondary N91.1 Dense breast tissue on mammogram R92.30
[2025-08-12 09:08] VITALS: BP 126/74; BMI 27.6
--- OUTSIDE RECORDS SUMMARY | 2025-08-12 09:49 | XMS_ITS | Clinical Summary ---
Author Organization [facility] [address] [facility] Address [address] [place] [address] Phone Care Team Providers Care Lining Vamper Name Role Phone Dari Carmen MD Primary Care Provider [phone] Allergies Active Allergy Reactions Criticality Noted Date [...] time each day if needed for anxiety. Active prasterone, dhea, (DHEA) 25 mg capsule [...] 1 (one) time each day. Active norethindrone (ATUL BROWNE H EATHER,MICRONOR ) 0.35 mg tablet Take 1 [...] Encounters Date Type Department Care Team Description 08/08/2025 8:39 AM EDT Anesthesia Event [facility] Endoscopy [address] [place] [address] Steve Prakash DO Pierce, Trudy A, CRNA 08/08/2025 7:42 AM EDT - 08/08/2025 11:59 PM EDT Hospital Encounter [facility] Endoscopy [address] [place] [phone] Robles Puckett MD Pierce, Trudy A, CRNA Korobkov, Vitaliy, DO Colon cancer screening Discharge Disposition: Home or Self Care 05/21/2025 Telephone Gastroenterology - [address] [facility] [address] [facility] [address] [place] [phone] Robles Puckett MD from Last 3 Months Surgical History Surgery Date Site/Laterality Comments COLONOSCOPY Medical History Medical History Date Comments Anxiety Depression Bipolar 1 disorder (CMS/HCC V24, CMS/HCC V28) Hypertension Skin cancer Social History Tobacco Use Types Packs/Day Years [...] AM EDT Sexual Orientation Not on file Obstetrics History Last Filed Vital Signs Vital Sign Reading [...] Mass Index 27.96 08/08/2025 8:31 AM EDT Plan of Treatment Health Maintenance Due Date Last Done Comments DTaP,Tdap,and Td Vaccines (1 - Tdap) 1993 Hepatitis A Vaccines (1 of 2 - Risk 2-dose series) 1993 Hepatitis B Vaccines (1 of 3 - 19+ 3-dose series) 1993 Cervical Cancer Screening: P ap Smear 1995 Depression Screening 11/06/2024 Cholesterol Screening (Lipid Panel) 03/12/2025 HIV Screening 03/12/2025 Hepatitis C Screening 03/12/2025 Social Influencers of Health Screening 03/12/2025 Influenza Vaccine (#1) 2025 , 08/01/2023 Hypertension/CHF/CAD Annual BMP Blood Test 08/08/2025 Breast Cancer Screening 06/16/2027 06/16/2025 Colorectal Cancer Screening: Colonoscopy 08/08/2035 08/08/2025 RSV Immunization Adult Patients (1 - 1-dose 75+ series) 2049 COVID-19 Vaccine Completed 07/16/2024, 08/01/2023 Zoster Vaccines Completed 10/18/2024, 07/16/2024 Pneumococcal Vaccine: 50+ Years Completed 12/11/2024 MMR Vaccines Aged Out 02/14/2025 No longer eligi ble based on patient's age to complete this topic HIB Vaccines Aged Out No longer eligi [...] to complete this topic RSV Immunization Patients Under 20 months Aged Out No longer eligible b ased on patient's age to complete this topic Varicella Vaccines Aged Out No longer eligible based on patient's age to complete this topic Procedures Procedure Name Priority Date/Time Associated Diagnosis Comments COLONOSCOPY Routine 08/08/2025 8:52 AM EDT Colon cancer screening from Last 3 Months Results * COLONOSCOPY Anesthesia - MAC; [facility] ENDOSCOPY (08/08/2025 8:52 AM EDT) Anatomical [...] office PRN. Narrative 08/08/2025 8:54 AM EDT [facility] GI Patient Name: Meme Amador Procedure Date: 08/08/2025 8:32 AM Date [...] malignant neoplasm of colon CPT copyright 2020 [employer]. All rights reserved. The codes documented in this report are preliminary and upon hollock maker review may be revised to meet current compliance requirements. Robles Puckett MD 08/08/2025 8:54:14 AM This report has been signed electronically.Robles Puckett MD Number of Addenda: 0 Note Initiated On: 08/08/2025 8:32 AM Scope In: Scope Out: Endoscopy Department at [facility] - [address] [place] [phone] Procedure Note Robles Puckett MD - 08/08/2025 [facility] GI Patient Name: Meme Amador Procedure Date: 08/08/2025 8:32 AM Date [...] for malignantneoplasm of colon CPT copyright 2020 [employer]. All rights reserved. The codes documented in this report are preliminary and upon hollock maker reviewmay be revised to meet current compliance requirements. Robles Puckett MD 08/08/2025 8:54:14 AM This report has been signed electronically.Robles Puckett MD Number of Addenda: 0 Note Initiated On: 08/08/2025 8:32 AM Scope In: Scope Out: Endoscopy Department at [facility] - [address] [place] [phone] IMPRESSION: - The entire examined colon is normal on direct and retroflexion views. - No specimens collected. Recommendation: - Discharge patient to home. - Resume previous diet. - Continue present medications. - Repeat colonoscopy in 10 years forsurveillance. - Return to GI office PRN. Robles Puckett MD GI~PROCEDURE ORDERABLES Final Result from Last 3 Months Insurance TASHI Helton MD ([facility] [place]) [place] [address] Care Teams Lining Vamper Relationship Specialty Start Date End Date Dari Carmen MD [address] [phone] PCP - General Family Medicine 03/11/25
== END 2025-08-12 14:26 | disposition home or self-care (01) ==
LOC: HO.HWS 08:58
PROVIDERS: PCP Family Medicine; Visit Provider Advanced Practice Midwife
DX: Z01.419 Encounter for gynecological examination (general) (routine) without abnormal findings (principal); Z30.41 Encounter for surveillance of contraceptive pills; N91.1 Secondary amenorrhea; R92.30 Dense breasts, unspecified
CPT/HCPCS: 99396

== ENCOUNTER 2025-08-12 08:58 | Outpatient (REF) | payer BC, SELFPAY ==
[2025-08-13 11:33] LABS: Bacterial Vaginosis PCR POSITIVE (Negative); Candida Group PCR NOT DETECTED (Not Detect); Candida glab krusei PCR NOT DETECTED (Not Detect); Trichomonas vaginalis PCR NOT DETECTED (Not Detect)
[2025-08-13 12:04] LABS: CT PCR NOT DETECTED (Not Detect.); NG PCR NOT DETECTED (Not Detect.)
== END 2025-08-12 08:59 | disposition home or self-care (01) ==
LOC: HO.LAB 08:58
PROVIDERS: PCP Family Medicine; Visit Provider Advanced Practice Midwife
DX: Z01.419 Encounter for gynecological examination (general) (routine) without abnormal findings (principal); Z30.41 Encounter for surveillance of contraceptive pills; N91.1 Secondary amenorrhea; N89.8 Other specified noninflammatory disorders of vagina; R92.30 Dense breasts, unspecified; Z20.2 Contact with and (suspected) exposure to infections with a predominantly sexual mode of transmission; Z79.3 Long term (current) use of hormonal contraceptives
CPT/HCPCS: 81515; 87491; 87591

== ENCOUNTER 2025-09-16 10:52 | Outpatient (REF) | payer BC, SELFPAY ==
--- NOTE | ~2025-09-16 | US_ITS ---
EXAMINATION: US SCREENING ULTRASOUND BREAST, BILATERAL CLINICAL INFORMATION: Dense breasts on mammography. Screening ultrasound. COMPARISON: None available. TECHNIQUE: Ultrasound is performed using grayscale imaging and color Doppler. Imaging is performed to include the four quadrants and retroareolar region. Both breasts are imaged. FINDINGS: Right breast: There is no suspicious finding by ultrasound. There is no solid mass or focal architectural abnormality. Left breast: There is no suspicious finding by ultrasound. There is no solid mass or focal architectural abnormality. US/US breast BI complete IMPRESSION: No suspicious findings on screening breast ultrasound. ASSESSMENT: Category 1: Negative RECOMMENDATION: 1 year F/U This patient's information was entered into a reminder system with a target due date for their next mammogram. Electronically signed by: Erin Chapa DO 09/16/2025 05:45 PM SUJEY
--- OUTSIDE RECORDS SUMMARY | 2025-09-16 12:59 | XMS_ITS | Clinical Summary ---
Author Organization [facility] [address] [facility] Address [address] [place] [address] Phone Care Team Providers Care Nitrocellulose Operator Name Role Phone Dari Caremn MD Primary Care Provider [phone] Allergies Active Allergy Reactions Criticality Noted Date [...] Description 08/08/2025 8:39 AM EDT Anesthesia Event [facility] Endoscopy [address] [place] [phone] Steve Prakash DO Pierce, Trudy A, CRNA 08/08/2025 7:42 AM EDT - 08/08/2025 11:59 PM EDT Hospital Encounter [facility] Endoscopy [address] [place] [address] Robles Puckett MD Pierce, Trudy A, CRNA Korobkov, Vitaliy, DO Colon cancer screening Discharge Disposition: Home or Self Care from Last 3 Months Surgical History Surgery [...] Cervical Cancer Screening: P ap Smear 1995 RSV Immunization Adult Patients (1 - Risk 50-74 years 1-dose series) 2024 Depression Screening 11/06/2024 Cholesterol Screening (Lipid Panel) 03/12/2025 HIV Screening 03/12/2025 Hepatitis C Screening 03/12/2025 Social Influencers of Health Screening 03/12/2025 Influenza Vaccine (#1) 2025 , 08/01/2023 Hypertension/CHF/CAD Annual BMP Blood Test 08/08/2025 Breast Cancer Screening 06/16/2027 06/16/2025 Colorectal Cancer Screening: Colonoscopy 08/08/2035 08/08/2025 COVID-19 Vaccine Completed 07/16/2024, 08/01/2023 Zoster Vaccines [...] Months Results * COLONOSCOPY Anesthesia - MAC; [facility] ENDOSCOPY (08/08/2025 8:52 AM EDT) Anatomical [...] office PRN. Narrative 08/08/2025 8:54 AM EDT [facility] GI Patient Name: Meme Amador Procedure [...] malignant neoplasm of colon CPT copyright 2020 [employer]. All rights reserved. The codes documented in this report are preliminary and upon remote inpatient coder review may be revised to meet current compliance requirements. Robles Puckett MD 08/08/2025 8:54:14 AM This report has been signed electronically.Robles Puckett MD Number of Addenda: 0 Note Initiated On: 08/08/2025 8:32 AM Scope In: Scope Out: Endoscopy Department at [facility] - [address] [place] [phone] Procedure Note Robles Puckett MD - 08/08/2025 [facility] GI Patient Name: Meme Amador Procedure [...] for malignantneoplasm of colon CPT copyright 2020 [employer]. All rights reserved. The codes documented in this report are preliminary and upon remote inpatient coder reviewmay be revised to meet current compliance requirements. Robles Puckett MD 08/08/2025 8:54:14 AM This report has been signed electronically.Robles Puckett MD Number of Addenda: 0 Note Initiated On: 08/08/2025 8:32 AM Scope In: Scope Out: Endoscopy Department at [facility] - [address] [place] [phone] IMPRESSION: - The entire examined colon is normal on direct and retroflexion views. - No specimens collected. Recommendation: - Discharge patient to home. - Resume previous diet. - Continue present medications. - Repeat colonoscopy in 10 years forsurveillance. - Return to GI office PRN. Robles Puckett MD GI~PROCEDURE ORDERABLES Final Result from Last 3 Months Insurance TASHI Helton MD ([facility]) Care Teams Nitrocellulose Operator Relationship Specialty Start Date End Date Dari Carmen MD [address] [phone] PCP - General Family Medicine 03/11/25
== END 2025-09-16 10:53 | disposition home or self-care (01) ==
LOC: HO.MAMMO 10:52
PROVIDERS: PCP Family Medicine; Visit Provider Advanced Practice Midwife
DX: R92.30 Dense breasts, unspecified (principal); N91.1 Secondary amenorrhea
CPT/HCPCS: 76641

== ENCOUNTER → 2025-09-16 11:00 | Outpatient (BNV) | payer BC, SELFPAY | PROVIDERS: PCP Family Medicine; Visit Provider Internal Medicine | DX: Z01.419 Encounter for gynecological examination (general) (routine) without abnormal findings (principal) | CPT/HCPCS: 76641 ==